=== PATIENT | female | born 1975 | race African-American/Black ===

== ENCOUNTER 2024-09-16 10:28 | Inpatient (IN) | payer BC, OTHER ==
[2024-09-16] MEDS ORDERED: Morphine 4 MG/ML VIAL ONE (10:47)
[2024-09-16] MEDS ORDERED: Ondansetron PF 4 MG/2 ML Vial ONE (10:47)
[2024-09-16 11:03] LABS: #Basophils 0.05 10x3/uL (0.0-0.2); #Eosinophils 0.01 10x3/uL (0.0-0.5); #Neutrophils 14.15 10x3/uL (1.5-8.4); %Basophils 0.3 % (0.0-2.0); %Eosinophils 0.1 % (0.0-6.0); %Lymphocytes 7.5 % (18.0-47.0); %Monocytes 4.3 % (0.0-10.0); %Neutrophils 87.3 % (40.0-75.0); Hematocrit 43.8 % (34.9-44.5); Hemoglobin 14.3 g/dL (12.0-15.5); Mean Corpuscular HGB CONC 32.6 g/dL (32.0-36.0); Mean Corpuscular Hemoglobin 27.1 pg (27.0-33.0); Mean Platelet Volume 9.1 fL (7.4-10.4); Platelet Count 427 10x3/uL (150-450); RBC Distribution Width 13.9 % (11.5-14.5); Red Blood Cell (RBC) Count 5.28 10x6/uL (3.90-5.03); White Blood Cell (WBC) Count 16.2 10x3/uL (3.5-10.5)
[2024-09-16 11:16] LABS: ALT (SGPT) 7 U/L (8-55); AST (SGOT) 14 U/L (5-34); Albumin 3.6 g/dL (3.5-5.0); Alkaline Phosphatase 64 U/L (40-110); Anion Gap 16 mmol/L (10-20); BUN (Urea Nitrogen) 10 mg/dL (7.0-18.7); Bilirubin, Total 0.8 mg/dL (0.2-1.2); Calc. Creatinine Clearance 0 mL/min (70-130); Calcium 9.3 mg/dL (7.8-10.44); Carbon Dioxide 19 mmol/L (22-29); Chloride 105 mmol/L (98-107); Estimated GFR 82; Globulin 4.8 g/dL (2.4-3.5); Glucose 124 mg/dL (70-105); Lipase 11 U/L (8-78); Potassium 3.7 mmol/L (3.5-5.1); Protein, Total 8.4 g/dL (6.0-8.3); Sodium 136 mmol/L (136-145)
[2024-09-16 11:21] LABS: RBC Morph Comment Within Normal Limits
[2024-09-16 11:22] LABS: Platelet Adequacy Comment Appears Adequate
[2024-09-16] MEDS ORDERED: fentaNYL 50 mcg/mL 1 mL Vial ONE ×2 (11:41→12:22)
[2024-09-16] MEDS ORDERED: Acetaminophen 325 MG TAB PO PRN (12:16)
[2024-09-16] MEDS ORDERED: traMADol HCl 50 MG TAB PO PRN (12:16)
[2024-09-16] MEDS ORDERED: Morphine 2 MG/ML VIAL ONE (12:49)
[2024-09-16 13:20] VITALS: BMI 49.6
[2024-09-16] MEDS ORDERED: metroNIDAZOLE 500 MG (100 mL) BAG ONE (13:47)
[2024-09-16] MEDS: Sodium Chloride 0.9% 1,000 ML IV SCH (13:50)
[2024-09-16] MEDS: metroNIDAZOLE 500 MG in Premix 1 BAG IVPB SCH (14:01)
[2024-09-16] MEDS ORDERED: Ketorolac Tromethamine 30 MG (1 mL) VIAL ONE (14:29)
[2024-09-16] MEDS: Ketorolac Tromethamine 30 MG (1 mL) VIAL IVP PRN (14:39)
[2024-09-16] MEDS: Ciprofloxacin Lactate/D5W 400 MG in Premix 1 BAG IVPB SCH (21:08)
[2024-09-16] MEDS: Metoprolol Tartrate 50 MG TAB PO SCH (21:10)
[2024-09-17 04:11] LABS: Anion Gap 14 mmol/L (10-20); BUN (Urea Nitrogen) 11 mg/dL (7.0-18.7); Calc. Creatinine Clearance 182 mL/min (70-130); Calcium 8.1 mg/dL (7.8-10.44); Carbon Dioxide 21 mmol/L (22-29); Chloride 107 mmol/L (98-107); Estimated GFR 98; Glucose 86 mg/dL (70-105); Potassium 3.5 mmol/L (3.5-5.1); Sodium 138 mmol/L (136-145)
[2024-09-17 04:21] LABS: #Basophils 0.01 10x3/uL (0.0-0.2); #Eosinophils 0.05 10x3/uL (0.0-0.5); #Neutrophils 7.06 10x3/uL (1.5-8.4); %Basophils 0.1 % (0.0-2.0); %Eosinophils 0.5 % (0.0-6.0); %Lymphocytes 15.7 % (18.0-47.0); %Monocytes 7.5 % (0.0-10.0); %Neutrophils 75.6 % (40.0-75.0); Hematocrit 34.8 % (34.9-44.5); Hemoglobin 10.6 g/dL (12.0-15.5); Mean Corpuscular HGB CONC 30.5 g/dL (32.0-36.0); Mean Corpuscular Hemoglobin 25.6 pg (27.0-33.0); Mean Corpuscular Volume 84.1 fL (81.6-98.3); Mean Platelet Volume 9.3 fL (7.4-10.4); Platelet Count 308 10x3/uL (150-450); RBC Distribution Width 14.3 % (11.5-14.5); Red Blood Cell (RBC) Count 4.14 10x6/uL (3.90-5.03); White Blood Cell (WBC) Count 9.4 10x3/uL (3.5-10.5)
[2024-09-17] MEDS: Enoxaparin 40 MG (0.4 mL) SYRINGE SC SCH (08:13)
[2024-09-17] MEDS: Amlodipine 10 MG TAB PO SCH (08:13)
[2024-09-18 08:16] VITALS: TEMP 98.4
[2024-09-18 12:30] VITALS: BP 152/76
== END 2024-09-18 14:17 | disposition home or self-care (01) | DRG 392 ==
LOC: CSHERS 10:28 → CSHERHOLD 12:29 → CSHTELE 15:06 → OBSVTOIN 09-18 10:15
PROVIDERS: ADMIT Internal Medicine; ATTEND Nurse Practitioner Acute Care
DX: A09 Infectious gastroenteritis and colitis, unspecified (principal); I10 Essential (primary) hypertension
CPT/HCPCS: 36415; 74176; 80048; 80053; 83690; 85025; 93005; 96372; 96374; 96375; 96376; G0378; J0744; J1650; J1885; J2272; J2405; J3010; J7030

== ENCOUNTER 2024-11-23 22:21 | Inpatient (IN) | payer BC ==
[~2024-11-23 22:21] MED LIST: Iopamidol 300 61% 100 ML VIAL FS ONE
[2024-11-23] MEDS ORDERED: Ondansetron PF 4 MG/2 ML Vial ONE (23:15)
[2024-11-23 23:18] LABS: #Basophils Less than 0.03 10x3/uL (0.0-0.2); #Eosinophils Less than 0.03 10x3/uL (0.0-0.5); #Monocytes 0.64 10x3/uL (0.0-1.1); %Basophils 0.1 % (0.0-2.0); %Eosinophils 0.1 % (0.0-6.0); %Lymphocytes 7.9 % (18.0-47.0); %Monocytes 4.6 % (0.0-10.0); %Neutrophils 86.9 % (40.0-75.0); Hematocrit 41.9 % (34.9-44.5); Hemoglobin 13.2 g/dL (12.0-15.5); Mean Corpuscular HGB CONC 31.5 g/dL (32.0-36.0); Mean Corpuscular Hemoglobin 25.9 pg (27.0-33.0); Mean Corpuscular Volume 82.2 fL (81.6-98.3); Mean Platelet Volume 8.9 fL (7.4-10.4); Platelet Count 341 10x3/uL (150-450); RBC Distribution Width 14.8 % (11.5-14.5); White Blood Cell (WBC) Count 14.02 10x3/uL (3.5-10.5)
[2024-11-23 23:34] LABS: BHCG - Serum Negative (NEGATIVE); Pregs Control Background? CLEAR/WHITE (CLR/WHITE); Pregs Control Bar Appear? YES (CONTROL BAR)
[2024-11-23] MEDS ORDERED: fentaNYL 50 mcg/mL 1 mL Vial ONE (23:34)
[2024-11-23 23:35] LABS: ALT (SGPT) 13 U/L (Less than 34); AST (SGOT) 38 U/L (11-34); Albumin 3.8 g/dL (3.1-4.5); Alkaline Phosphatase 84 U/L (40-110); Anion Gap 17 mmol/L (10-20); BUN (Urea Nitrogen) 10 mg/dL (7.0-18.7); Bilirubin, Total 0.6 mg/dL (0.3-1.2); Calc. Creatinine Clearance 0 mL/min (70-130); Calcium 9.5 mg/dL (7.8-10.44); Carbon Dioxide 21 mmol/L (22-29); Chloride 104 mmol/L (98-107); Estimated GFR 94; Globulin 5.1 g/dL (2.4-3.5); Glucose 139 mg/dL (70-105); Lipase 55 U/L (8-78); Potassium 3.8 mmol/L (3.5-5.1); Protein, Total 8.9 g/dL (6.0-8.3); Sodium 138 mmol/L (136-145)
[2024-11-24] MEDS ORDERED: Morphine 4 MG/ML VIAL ONE (00:57)
[2024-11-24] MEDS ORDERED: Prochlorperazine 10 MG/2 ML VIAL ONE (00:57)
[2024-11-24] MEDS ORDERED: Acetaminophen 500 MG TAB ONE (02:28)
[2024-11-24] MEDS ORDERED: metroNIDAZOLE 500 MG (100 mL) BAG ONE (03:37)
[2024-11-24] MEDS ORDERED: Senokot S 8.6-50 MG TAB PO PRN (04:05)
[2024-11-24] MEDS ORDERED: Zolpidem Tartrate 5 MG TAB PO PRN (04:05)
[2024-11-24] MEDS ORDERED: Calcium Carbonate 500 MG ChewTAB PO PRN (04:05)
[2024-11-24] MEDS ORDERED: Ondansetron PF 4 MG/2 ML Vial IVP PRN (04:05)
[2024-11-24] MEDS ORDERED: Acetaminophen 325 MG TAB PO PRN (04:05)
[2024-11-24] MEDS ORDERED: Morphine 2 MG/ML VIAL SLOW IVP PRN (04:15)
[2024-11-24 05:09] VITALS: BMI 51.9
[2024-11-24] MEDS: Lactated Ringer's 500 ML IV SCH (05:30)
[2024-11-24] MEDS: Pantoprazole 40 MG VIAL IVP SCH (05:30)
[2024-11-24] MEDS: Lidocaine 2% Viscous Solution 10 ML, Aluminum & Magnesium Hydroxide 30 ML SSW SCH (05:35)
[2024-11-24] MEDS: Ciprofloxacin Lactate/D5W 400 MG in Premix 1 BAG IVPB SCH (05:36)
[2024-11-24] MEDS: Metoprolol Tartrate 50 MG TAB PO SCH (10:00)
[2024-11-24] MEDS: Amlodipine 10 MG TAB PO SCH (10:01)
[2024-11-24] MEDS: Hydrochlorothiazide 25 MG TAB PO SCH (10:01)
[2024-11-24] MEDS: Lactated Ringer's 1,000 ML IV SCH (10:04)
[2024-11-24] MEDS: FLU (Fluarix Triv) TS24-25(6MOS UP)/PF 45 MCG/0.5 ML Syringe IM ONE (10:14)
[2024-11-24] MEDS: metroNIDAZOLE 500 MG in Premix 1 BAG IVPB SCH (12:27)
[2024-11-24 14:07] LABS: Hemoglobin A1c 5.7 % (4.0-6.0)
[2024-11-24] MEDS ORDERED: Iopamidol 370 76% 100 ML VIAL ONE (15:37)
[2024-11-24 16:14] LABS: Bilirubin Neg (Negative); Blood, Urine Negative (Negative); Clarity Clear (Clear); Glucose, Urine (Dipstick) Normal (Negative); Ketone, Urine Negative (Negative); Leukocyte Negative (Negative); Nitrite Negative (Negative); Protein, Urine (Dipstick) 30 mg/dl (Neg-Trace); Urobilinogen Normal mg/dL (Less than 2)
[2024-11-24 16:24] LABS: Amphetamine Detected (NotDetected); Barbiturates Screen Not Detected (NotDetected); Benzodiazepine Screen Not Detected (NotDetected); Cocaine Metabolite Screen Not Detected (NotDetected); Methadone Not Detected (NotDetected); Methamphetamine Not Detected (NotDetected); Opiate Screen Detected (NotDetected); Oxycodone Screen Not Detected (NotDetected); Phencyclidine (PCP) Not Detected (NotDetected); THC/Cannabinoid Screen Not Detected (NotDetected); Tricyclic Screen Not Detected (NotDetected)
[2024-11-24 16:33] LABS: Bacteria/HPF Rare-Few HPF (None Seen); RBC/HPF 0-3 HPF (0-3)
[2024-11-24 17:23] LABS: Complement-C3 176 mg/dL (83-193); Complement-C4 33 mg/dL (15-57)
[2024-11-24] MEDS: Enoxaparin 40 MG (0.4 mL) SYRINGE SC SCH (20:37)
[2024-11-25 04:41] LABS: #Basophils Less than 0.03 10x3/uL (0.0-0.2); #Eosinophils 0.03 10x3/uL (0.0-0.5); #Monocytes 0.53 10x3/uL (0.0-1.1); #Neutrophils 4.27 10x3/uL (1.5-8.4); %Basophils 0.2 % (0.0-2.0); %Eosinophils 0.5 % (0.0-6.0); %Lymphocytes 25.3 % (18.0-47.0); %Monocytes 8.1 % (0.0-10.0); %Neutrophils 65.6 % (40.0-75.0); Hematocrit 36.3 % (34.9-44.5); Mean Corpuscular HGB CONC 30.3 g/dL (32.0-36.0); Mean Corpuscular Hemoglobin 25.8 pg (27.0-33.0); Mean Corpuscular Volume 85.2 fL (81.6-98.3); Platelet Count 262 10x3/uL (150-450); RBC Distribution Width 15.1 % (11.5-14.5); Red Blood Cell (RBC) Count 4.26 10x6/uL (3.90-5.03); White Blood Cell (WBC) Count 6.51 10x3/uL (3.5-10.5)
[2024-11-25 05:05] LABS: ALT (SGPT) 11 U/L (Less than 34); AST (SGOT) 42 U/L (11-34); Albumin 3.2 g/dL (3.1-4.5); Alkaline Phosphatase 64 U/L (40-110); Anion Gap 14 mmol/L (10-20); BUN (Urea Nitrogen) 7 mg/dL (7.0-18.7); Bilirubin, Total 0.6 mg/dL (0.3-1.2); Calc. Creatinine Clearance 196 mL/min (70-130); Calcium 8.4 mg/dL (7.8-10.44); Carbon Dioxide 23 mmol/L (22-29); Chloride 105 mmol/L (98-107); Estimated GFR 102; Globulin 4.2 g/dL (2.4-3.5); Glucose 88 mg/dL (70-105); Potassium 3.8 mmol/L (3.5-5.1); Protein, Total 7.4 g/dL (6.0-8.3); Sodium 138 mmol/L (136-145)
[2024-11-25] MEDS: Pantoprazole 40 MG VIAL IVP SCH (09:12)
[2024-11-25 11:57] LABS: ANA Symphony (Qualitative) Negative (Negative); ANA Symphony (Quantitative) 0.2 Ratio (< 0.7 Negative); dsDNA IgG Antibody 9.5 IU/mL (<10 Negative)
[2024-11-25 12:12] VITALS: BP 175/93; TEMP 98
[2024-11-25] MEDS: Hydrochlorothiazide 25 MG TAB PO SCH (13:10)
[2024-11-25] MEDS: metroNIDAZOLE 500 MG TAB PO SCH (13:10)
[2024-11-27 11:51] LABS: EliA Celiac New Method **** NEW METHOD ****
== END 2024-11-25 14:27 | disposition home or self-care (01) | DRG 392 ==
LOC: CSHERS 22:21 → CSHTELE 11-24 03:53 → OBSVTOIN 11-24 03:53
PROVIDERS: ADMIT Student in an Organized Health Care Education/Training Program; ATTEND Family Medicine
DX: K52.9 Noninfective gastroenteritis and colitis, unspecified (principal); Z68.43 Body mass index [BMI] 50.0-59.9, adult; I10 Essential (primary) hypertension; E66.01 Morbid (severe) obesity due to excess calories; R73.9 Hyperglycemia, unspecified; R82.5 Elevated urine levels of drugs, medicaments and biological substances; I16.0 Hypertensive urgency; Z79.899 Other long term (current) drug therapy
CPT/HCPCS: 36415; 74174; 74177; 80053; 80306; 81001; 83036; 83516; 83690; 84145; 84703; 85025; 86038; 86140; 86160; 86161; 86225; 96365; 96375; 96376; G0378; J0744; J0780; J1650; J2270; J2405; J2470; J3010; J7120; Q9967